=== PATIENT | male | born 1990 | race Caucasian/White ===

== ENCOUNTER 2017-07-07 16:17 | Emergency (ER) | payer BC ==
--- NOTE | 2017-07-07 16:40 | EDM.PDOC ---
ED HPI GENERAL MEDICAL PROBLEM - General Chief Complaint: General Stated Complaint: R RIB PAIN Time Seen by Provider: 07/07/17 16:31 - History of Present Illness INITIAL COMMENTS - FREE TEXT/NARRATIVE: HISTORY AND PHYSICAL: History of present illness: The patient is a 26-year-old male with no stated medical problems who complains of right anterior rib/chest wall pain after he injured it 2 days ago. Patient says that he was working on a pipe that had frozen at home and he was using a wrench and twisted and felt a pop in his right anterior chest wall and then he proceeded to slip and fall and land on the same area. He did not pass out or black out and has no head neck or back pain and only complains of anterior right chest wall pain. It's worse with certain movements and with coughing but he has had no fever chills or cold symptoms no abdominal pain and no posterior rib pain. He has no other complaints of discomfort and he is not taking anything for his pain at home. Review of systems: As per history of present illness and below otherwise all systems reviewed and negative. Past medical history: As per history of present illness and as reviewed below otherwise noncontributory. Surgical history: As per history of present illness and as reviewed below otherwise noncontributory. Social history: No reported history of drug or alcohol abuse. Family history: As per history of present illness and as reviewed below otherwise noncontributory. Physical exam: Gen.: Well-developed well-nourished man who is nontoxic and speaks clearly and easily in the ED. Vital signs reviewed by me HEENT: Atraumatic, normocephalic, negative for conjunctival pallor or scleral icterus, mucous membranes moist, throat clear, neck supple, nontender, trachea midline. Lungs: Clear to auscultation, the patient does exhibit some splinting with deep breaths but has no wheezing stridor or work of breathing, breath sounds equal bilaterally, chest wall with rib tenderness in the anterior mid and lower rib cage without crepitus or defects deformities ecchymosis appreciated. Heart: S1S2, regular rate and rhythm no overt murmurs Abdomen: Soft, nondistended, nontender. NABS Pelvis: Stable nontender. Genitourinary: Deferred. Rectal: Deferred. Extremities: Atraumatic, negative for cords or calf pain. Neurovascular unremarkable. Neuro: Awake, alert, oriented. Cranial nerves II through XII unremarkable. Cerebellum unremarkable. Motor and sensory unremarkable throughout. Exam nonfocal. Diagnostics: Right ribs with chest x-ray Therapeutics: Patient declined any medications for pain in the ER Impression: Right rib/chest wall contusion stable Definitive disposition and diagnosis as appropriate pending reevaluation and review of above. Chest Pain Score (Numeric/FACES): 5 ED ROS GENERAL - Review of Systems Review Of Systems: ROS reveals no pertinent complaints other than HPI. ED EXAM, GENERAL - Physical Exam Exam: See Below (See dictation) Course - Vital Signs Last Recorded V/S: Last Vital Signs Temp 36.6 C 07/07/17 16:30 Pulse 94 07/07/17 16:30 Resp 18 07/07/17 16:30 BP 131/83 07/07/17 16:30 Pulse Ox 97 07/07/17 16:30 - Orders/Labs/Meds Orders: Active Orders 24 hr Category Date Time Status Ribs 2V w Chest Rt [CR] Stat Exams 07/07/17 16:37 Taken Departure - Departure Time of Disposition: 17:32 Disposition: Home, Self-Care 01 Condition: Good Clinical Impression: Contusion of rib on right side Qualifiers: Encounter type: initial encounter Qualified Code(s): S20.211A - Contusion of right front wall of thorax, initial encounter Chest wall contusion Qualifiers: Encounter type: initial encounter Laterality: right Qualified Code(s): S20.211A - Contusion of right front wall of thorax, initial encounter - Discharge Information Referrals: PCP,None [Primary Care Provider] - Forms: ED Department Discharge Additional Instructions: The following information is given to patients seen in the emergency department who are being discharged to home. This information is to outline your options for follow-up care. We provide all patients seen in our emergency department with a follow-up referral. The need for follow-up, as well as the timing and circumstances, are variable depending upon the specifics of your emergency department visit. If you don't have a primary care physician on staff, we will provide you with a referral. We always advise you to contact your personal physician following an emergency department visit to inform them of the circumstance of the visit and for follow-up with them and/or the need for any referrals to a consulting specialist. The emergency department will also refer you to a specialist when appropriate. This referral assures that you have the opportunity for followup care with a specialist. All of these measure are taken in an effort to provide you with optimal care, which includes your followup. Under all circumstances we always encourage you to contact your private physician who remains a resource for coordinating your care. When calling for followup care, please make the office aware that this follow-up is from your recent emergency room visit. If for any reason you are refused follow-up, please contact the [facility] emergency department at and ask to speak to the emergency department charge nurse. [facility] Primary care- [place] [address] Use ice to area for pain and inflammation and use [id number] Motrin or Tylenol for discomfort. His connect with local family doctor for reevaluation further care if the pain persists in the next few days and return to ER as needed and as discussed. - My Orders Last 24 Hours: My Active Orders 07/07/17 16:37 Ribs 2V w Chest Rt [CR] Stat - Assessment/Plan Last 24 Hours: My Active Orders 07/07/17 16:37 Ribs 2V w Chest Rt [CR] Stat
--- NOTE | 2017-07-08 20:38 | CR ---
EXAM DATE: 07/07/17 PATIENT'S AGE: 26 Patient: SLAVA MYRICK Facility: [place], [place] Site . Site : 1990 Study: XRay Chest RIBS W? CHEST [id number] 5:04:28 PM Ordering Physician: Preet Fischer Final Report: INDICATION: Pain after fall. TECHNIQUE: PA chest and four view right ribs. FINDINGS: The lungs are clear. There is no evidence of pulmonary contusion, pneumothorax or pleural effusion. The heart and pulmonary vessels are of normal size. Oblique detail views of the ribs demonstrate no evidence of fracture or intrinsic bone lesion. There is no evidence of pleural hematoma. IMPRESSION: Negative chest and right ribs. Dictated by Jordy Cutris MD @ Jul 07 2017 5:20PM (Electronic Signature) Report Signed by Proxy. MELITA
== END 2017-07-07 17:45 | disposition home or self-care (01) ==
LOC: MW.ED 16:17
DX: S20.211A Contusion of right front wall of thorax, initial encounter (principal); X50.1XXA Overexertion from prolonged static or awkward postures, initial encounter
CPT/HCPCS: 71101-26-RT; 71101-RT; 99283; 99284

== ENCOUNTER 2019-12-15 23:16 | Emergency (ER) | payer BC, OTHER ==
[2019-12-15] MEDS ORDERED: Ibuprofen 800 MG Tab PO ONE (23:44)
--- NOTE | 2019-12-15 23:46 | EDM.PDOC ---
ED HPI GENERAL MEDICAL PROBLEM - General Chief Complaint: Lower Extremity Injury/Pain Stated Complaint: POSSIBLE LEFT LEG INJURY Time Seen by Provider: 12/15/19 23:45 Source of Information: Reports: Patient History Limitations: Reports: No Limitations - History of Present Illness INITIAL COMMENTS - FREE TEXT/NARRATIVE: History of present illness: [Patient is a 29-year-old male who presents with right upper leg pain after playing softball earlier this evening. He states that he dove for a ball and landed hard, he was able to get up and continue playing but shortly after getting home he developed significant pain in his right thigh, specifically quadricep area. He feels like he tore something in that muscle. Pain is exacerbated with weightbearing and palpation of the area. He did not take any pain medicine at home. Denies any head trauma or loss of consciousness.] Review of systems: As per history of present illness and below otherwise all systems reviewed and negative. Past medical history: As per history of present illness and as reviewed below otherwise noncontributory. Surgical history: As per history of present illness and as reviewed below otherwise noncontributory. Social history: No reported history of drug or alcohol abuse. Family history: As per history of present illness and as reviewed below otherwise noncontributory. Physical exam: General: Awake, alert, no acute distress, A&O X3. HEENT: Atraumatic, normocephalic, pupils reactive, negative for conjunctival pallor or scleral icterus, mucous membranes moist, throat clear, neck supple, nontender, trachea midline. Lungs: Clear to auscultation, breath sounds equal bilaterally, chest nontender. Heart: RRR, normal S1S2, no JVD. Abdomen: Soft, nondistended, nontender. Negative for masses or hepatosplenomegaly. Negative for costovertebral tenderness. Pelvis: Stable nontender. Genitourinary: Deferred. Rectal: Deferred. Extremities: Atraumatic, no edema, Neurovascular unremarkable. Neuro: Motor and sensory grossly intact throughout. Exam nonfocal. Diagnostics: [] Therapeutics: [] Impression: [] Plan: [] Definitive disposition and diagnosis as appropriate pending reevaluation and review of above. r thigh Pain Score (Numeric/FACES): 7 - Related Data Allergies Allergy/AdvReac Type Severity Reaction Status Date / Time cat Allergy Other Uncoded 12/15/19 23:36 Home Meds: Home Meds . [No Known Home Meds] 07/07/17 [History] Past Medical History - Past Surgical History GI Surgical History: Reports: Appendectomy Social & Family History - Caffeine Use Caffeine Use: Reports: Coffee Review of Systems - Review of Systems Review Of Systems: Comprehensive ROS is negative, except as noted in HPI. ED EXAM, GENERAL - Physical Exam Exam: See Below (see h and p) ED TRAUMA EXTREMITY PROCEDURES - Additional/Other Procedure(s) Other (Free Text) Procedure(s): PAPO wrap applied to right thigh by me. Patient tolerated procedure well. NV intact before and after. -Nestor Silverman MD Course - Vital Signs Text/Narrative:: X-ray negative. Patient feels some improvement after getting oral ibuprofen. Papo bandage applied. Encouraged follow-up in the outpatient setting with PCP. Return precautions also provided. Patient is agreeable and comfortable this plan and stable and well-appearing at discharge. Last Recorded V/S: Last Vital Signs Temp 36.2 C 12/15/19 23:23 Pulse 89 12/15/19 23:23 Resp 17 12/15/19 23:23 BP 118/79 12/15/19 23:23 Pulse Ox 97 12/15/19 23:23 - Orders/Labs/Meds Meds: Medications Discontinued Medications Generic Name Dose Route Start Last Admin Trade Name Amie PRN Reason Stop Dose Admin Ibuprofen 800 mg 12/15/19 23:44 12/16/19 00:20 Motrin PO 12/15/19 23:45 800 mg ONETIME ONE Administration Departure - Departure Time of Disposition: 00:34 Disposition: Home, Self-Care 01 Condition: Good Clinical Impression: Quadriceps muscle strain - Discharge Information Instructions: Quadriceps Strain Referrals: PCP,None [Primary Care Provider] - Forms: ED Department Discharge Additional Instructions: The following information is given to patients seen in the emergency department who are being discharged to home. This information is to outline your options for follow-up care. We provide all patients seen in our emergency department with a follow-up referral. The need for follow-up, as well as the timing and circumstances, are variable depending upon the specifics of your emergency department visit. If you don't have a primary care physician on staff, we will provide you with a referral. We always advise you to contact your personal physician following an emergency department visit to inform them of the circumstance of the visit and for follow-up with them and/or the need for any referrals to a consulting specialist. The emergency department will also refer you to a specialist when appropriate. This referral assures that you have the opportunity for follow-up care with a specialist. All of these measure are taken in an effort to provide you with optimal care, which includes your follow-up. Under all circumstances we always encourage you to contact your private physician who remains a resource for coordinating your care. When calling for follow-up care, please make the office aware that this follow-up is from your recent emergency room visit. If for any reason you are refused follow-up, please contact the [facility] Emergency Department at and asked to speak to the emergency department charge nurse. Lidia Best [facility] - Internal Medicine [address] [place] [id number] Sepsis Event Note (ED) - Evaluation Sepsis Screening Result: No Definite Risk - Focused Exam Vital Signs: Vital Signs Temp Pulse Resp BP Pulse Ox 12/15/19 23:23 36.2 C 89 17 118/79 97
--- NOTE | 2019-12-16 00:31 | CR ---
Indication: Fall. Pain Technique: Five views of the right femur Comparison: None available Findings: Bones: Alignment is normal. No fractures or bone lesions. Joint spaces: Preserved. Increased attenuation in Hoffa`s fat pad could represent focal edema. Soft tissues: Unremarkable. Impression: No acute fracture or dislocation. Dictated by Frankie Breen MD @ 12/16/2019 12:29:16 AM Dictated by: Frankie Breen MD @ 12/16/2019 00:29:55 (Electronically Signed)
== END 2019-12-16 01:20 | disposition home or self-care (01) ==
LOC: MW.ED 23:16
DX: S76.111A Strain of right quadriceps muscle, fascia and tendon, initial encounter (principal); Z91.048 Other nonmedicinal substance allergy status; X50.9XXA Other and unspecified overexertion or strenuous movements or postures, initial encounter; Y93.64 Activity, baseball
CPT/HCPCS: 73552; 99283; A9270

== ENCOUNTER 2020-12-20 14:46 | Emergency (ER) | payer OTHER ==
[2020-12-20] MEDS ORDERED: Diphtheria,Pertussis(Acell),Tetanus Vaccine 0.5 ML Syringe IM ONE (15:06)
[2020-12-20] MEDS ORDERED: Ketorolac 15 MG/ML SDV IM ONE (15:06)
[2020-12-20] MEDS ORDERED: Lidocaine 1% with EPINEPHrine 1:100,000 10 ML MDV INJECT ONE (16:12)
[2020-12-20] MEDS ORDERED: Lidocaine 1% 10 ML MDV INJECT ONE (16:13)
--- NOTE | 2020-12-20 16:24 | CR ---
Indication: Hand laceration Technique: Three views left hand Comparison: None Findings: Bones: Alignment is normal. No fractures or bone lesions. Joint spaces: Unremarkable. Soft tissues: Unremarkable. Impression: Negative. Dictated by Ángela Ruiz MD @ 12/20/2020 4:23:[address] Ángela Ruiz @ Dec 20 2020 4:23PM
[2020-12-20] MEDS ORDERED: Lidocaine 1% with EPINEPHrine 1:100,000 20 ML MDV ONE (16:28)
[2020-12-20] MEDS ORDERED: Cephalexin 500 MG Cap PO ONE (17:40)
[2020-12-20] MEDS ORDERED: Bacitracin Oint 1 GM U/D Packet TOP ONE (17:41)
--- NOTE | 2020-12-20 17:48 | EDM.PDOC ---
ED HPI GENERAL MEDICAL PROBLEM - General Chief Complaint: Laceration Stated Complaint: CUT L HAND AT WORK Time Seen by Provider: 12/20/20 14:58 - History of Present Illness INITIAL COMMENTS - FREE TEXT/NARRATIVE: CHIEF COMPLAINT(S): Left hand knife wound HISTORY OF PRESENT ILLNESS: This is a 30-year-old man and without any significant past medical history who comes to the emergency department with a chief complaint of knife wound to his left hand. The patient states that he was at work and the pocket knife slipped and cut the palm of his left hand. He states that he does have some tingling to his left pinky and some mild bleeding. He states that his tetanus is not up-to-date. He states that his pain is currently 6 out of 10 which he describes as aching without any radiation. He states that he can move all of his fingers on his left hand. He denies any other injury with a knife. He denies any chest pain, shortness of breath, abdominal pain. REVIEW OF SYSTEMS: Constitutional: Denies fever, chills. Eyes: Denies eye pain Ears, Nose, Mouth, & Throat: Denies earache Cardiovascular: Denies chest pain Respiratory: Denies shortness of breath Gastrointestinal: Denies Nausea, vomiting, diarrhea, hematochezia. Genitourinary: Denies hematuria Skin: Positive for left hand wound MSK: Denies joint pain Neurological: Positive for left pinky tingling denies blurred vision Psychiatric: Denies depression PAST MEDICAL HISTORY: As per history of present illness and as reviewed below otherwise noncontributory. SURGICAL HISTORY: As per history of present illness and as reviewed below otherwise noncontributory. SOCIAL HISTORY: As per history of present illness and as reviewed below otherwise noncontributory. FAMILY HISTORY: As per history of present illness and as reviewed below otherwise noncontributory. EXAMINATION OF ORGAN SYSTEMS/BODY AREAS: Constitutional: Blood pressure is 136/82, heart rate 88, respiratory 20 with an oxygen saturation 97% on room air. Temperature 36.2 General: Overall well-appearing man who is in no acute distress Psychiatric: Appropriate mood and affect. Eyes: No scleral icterus or conjunctival erythema ENMT: Moist mucous membranes. No pharyngeal erythema Cardiovascular: Regular, rate, and rhythm. No gallops, murmurs, or rubs. Bilateral upper extremity pulses symmetric and intact. Respiratory: Lungs clear to auscultation bilaterally. No wheezes, rales, or rhonchi. Gastrointestinal: Soft, non-tender, non-distended. Normoactive bowel sounds Genitourinary: No suprapubic tenderness Musculoskeletal: The patient has full range of motion of all of his fingers on his left hand including flexion and extension. The patient can abduct and abduct all his fingers. Full range of motion at the left wrist. Skin: There is a 9 cm laceration to the patient's medial hand which starts on the palmar aspect extends laterally onto the dorsal aspect. There is muscle exposed but there is no tendon exposed. There is some oozing of blood. Neurological: Alert, GCS 15 distal sensation is intact. MEDICAL DECISION MAKING AND COURSE IN THE ED WITH INTERPRETATION/REVIEW OF DIAGNOSTIC STUDIES: This is a 30-year-old and without any significant past medical history who comes to the emergency department with large laceration to his left medial hand who is neurovascularly intact with some tingling in his left pinky finger with some mild oozing of blood. At this time we did place a compression dressing. Will obtain a left hand x-ray to evaluate for any foreign bodies or fracture. Given there is no tendon exposed and the patient is neurovascularly intact I do believe we can suture repair the patient here. We will provide the patient with Toradol for pain relief and update the patient's tetanus status. The patient will require prophylaxis for antibiotics given that the wound is mildly deep and large. We will start the patient on Keflex. The radiological images were viewed by myself along with reading the report from the radiologist. Left hand x-ray does not reveal any acute abnormality. On reevaluation, the patient's compression dressing was removed and the wound was irrigated well by RN. After irrigation the patient's wound continued to ooze. There appeared to be some arterial bleeding therefore we did place Surgicel and applied compression. Given the oozing of the blood I did contact hand surgery at [facility] in [place] and spoke with Dr. Leal. Patient does have the tingling in his left pinky finger however he has full range of motion. This was discussed with hand surgery. Given the patient has good capillary refill distally has full function of his fingers he stated that stitches could be placed to control the bleeding and primary closure with stitches as appropriate. On reevaluation after compression the patient's bleeding had significantly decreased. There was no active arterial bleeding at this time. Laceration Repair Note Repair of the 9 cm left hand wound was done by myself. Wound was irrigated well with saline. Local anesthesia with lidocaine was performed. No foreign bodies were noted. The wound was repaired with 13 4-0 directed nylon sutures and one deep 4-0 chronic gut suture was used to approximate the wound. . Wound edges approximated well. Bacitracin ointment and a sterile dressing were applied.. I did discuss strict return precautions with the patient regarding this laceration. Hand surgery contact information was provided to the patient. He is to return within 10 to 14 days for stitch removal. He was amenable discharge and had no further questions DISPOSITION: The patient was discharged home in stable condition. The patient will follow up with primary care physician or emergency department for stitch removal CONDITION: Fair PROCEDURES: Left hand laceration repair FINAL IMPRESSION(S)/DIAGNOSES: 1. Acute left hand laceration status post suture repair Roger Davis M.D. left hand Pain Score (Numeric/FACES): 6 - Related Data Allergies Allergy/AdvReac Type Severity Reaction Status Date / Time cat Allergy Other Uncoded 12/20/20 14:58 Home Meds: Home Meds cephALEXin [Keflex] 500 mg PO BID #10 cap 12/20/20 [Rx] Past Medical History - Past Health History Medical/Surgical History: Denies Medical/Surgical History HEENT History: Reports: None Cardiovascular History: Reports: None Respiratory History: Reports: None Gastrointestinal History: Reports: None Genitourinary History: Reports: None Musculoskeletal History: Reports: None Neurological History: Reports: None Psychiatric History: Reports: None Endocrine/Metabolic History: Reports: None Hematologic History: Reports: None Immunologic History: Reports: None Oncologic (Cancer) History: Reports: None Dermatologic History: Reports: None - Infectious Disease History Infectious Disease History: Reports: None - Past Surgical History Head Surgeries/Procedures: Reports: None GI Surgical History: Reports: Appendectomy Social & Family History - Family History Family Medical History: No Pertinent Family History - Tobacco Use Tobacco Use Status *Q: Current Every Day Tobacco User Years of Tobacco use: 12 Packs/Tins Daily: 1 - Caffeine Use Caffeine Use: Reports: None - Recreational Drug Use Recreational Drug Use: No ED ROS GENERAL - Review of Systems Review Of Systems: See Below ED EXAM, SKIN/RASH Exam: See Below Course - Vital Signs Last Recorded V/S: Last Vital Signs Temp 36.6 C 12/20/20 18:20 Pulse 71 12/20/20 18:20 Resp 18 12/20/20 18:20 BP 137/77 12/20/20 18:20 Pulse Ox 98 12/20/20 18:20 - Orders/Labs/Meds Meds: Medications Discontinued Medications Generic Name Dose Route Start Last Admin Trade Name Amie PRN Reason Stop Dose Admin Bacitracin 1 dose 12/20/20 17:41 12/20/20 18:07 Bacitracin Oint 1 Gm U/D Packet TOP 12/20/20 17:42 1 dose ONETIME ONE Administration Cephalexin 500 mg 12/20/20 17:40 12/20/20 18:06 Cephalexin 500 Mg Cap PO 12/20/20 17:41 500 mg ONETIME ONE Administration Diphtheria/Tetanus/Acell Pertussis 0.5 ml 12/20/20 15:06 12/20/20 15:23 Diphtheria,Pertussis(Acell),Tetanus Vaccine 0.5 Ml Syringe IM 12/20/20 15:07 0.5 ml .ONCE ONE Administration Ketorolac Tromethamine 15 mg 12/20/20 15:06 12/20/20 15:23 Ketorolac 15 Mg/Ml Sdv IM 12/20/20 15:07 15 mg ONETIME ONE Administration Lidocaine HCl 20 ml 12/20/20 16:13 12/20/20 16:34 Lidocaine 1% 10 Ml Mdv INJECT 12/20/20 16:14 Not Given ONETIME ONE Lidocaine HCl Confirm 12/20/20 16:28 12/20/20 16:33 Lidocaine 1% 5 Ml Sdv Administered 12/20/20 16:29 10 ml Dose Administration 10 ml .ROUTE .STK-MED ONE Lidocaine/Epinephrine 10 ml 12/20/20 16:12 12/20/20 16:35 Lidocaine 1% With Epinephrine 1:100,000 10 Ml Mdv INJECT 12/20/20 16:13 Not Given ONETIME ONE Lidocaine/Epinephrine Confirm 12/20/20 16:28 12/20/20 16:34 Lidocaine 1% With Epinephrine 1:100,000 20 Ml Mdv Administered 12/20/20 16:29 20 ml Dose Administration 20 ml .ROUTE .STK-MED ONE Departure - Departure Time of Disposition: 17:47 Disposition: Home, Self-Care 01 Condition: Fair Clinical Impression: Laceration - Discharge Information *PRESCRIPTION DRUG MONITORING PROGRAM REVIEWED*: No *COPY OF PRESCRIPTION DRUG MONITORING REPORT IN PATIENT ANOOP: No Prescriptions: cephALEXin [Keflex] 500 mg PO BID #10 cap Instructions: Laceration Care, Adult, Sutures, [facility], or Adhesive Wound Closure, [id number] Referrals: PCP,None [Primary Care Provider] - Forms: ED Department Discharge Additional Instructions: You were evaluated today on an emergent basis. At this time you did have a significant cut to your left hand. At the time of our evaluation we did have good blood flow to your pinky finger and there was some bleeding which did appear to stop. We did place 13 stitches and I do recommend removal in 10 to 14 days either here at the emergency department or your primary care physician. I do recommend use Keflex twice a day for the next 5 days as prophylaxis for possible infection. If you have any redness, pus drainage, continued bleeding I would return to the emergency department. In addition if your pinky finger or any other finger turns cold, white and you feel like there is no blood flow to it please return to the emergency department. Hand Surgery ([place]) [phone] [facility] [address] [place] [address] [place] [address] The patient is informed of any results of their evaluation and diagnostic workup and all questions are answered. They are given discharge instructions and return precautions. The patient is stable for discharge. The patient states they understand and agree with the plan and that they will return if their symptoms get worse or if they have any new concerns. The following information is given to patients seen in the emergency department who are being discharged to home. This information is to outline your options for follow-up care. We provide all patients seen in our emergency department with a follow-up referral. The need for follow-up, as well as the timing and circumstances, are variable depending upon the specifics of your emergency department visit. If you don't have a primary care physician on staff, we will provide you with a referral. We always advise you to contact your personal physician following an emergency department visit to inform them of the circumstance of the visit and for follow-up with them and/or the need for any referrals to a consulting specialist. The emergency department will also refer you to a specialist when appropriate. This referral assures that you have the opportunity for follow-up care with a specialist. All of these measure are taken in an effort to provide you with optimal care, which includes your follow-up. Under all circumstances we always encourage you to contact your private physician who remains a resource for coordinating your care. When calling for follow-up care, please make the office aware that this follow-up is from your recent emergency room visit. If for any reason you are refused follow-up, please contact the [facility] Emergency Department at and asked to speak to the emergency department charge nurse. Sepsis Event Note (ED) - Evaluation Sepsis Screening Result: No Definite Risk - Focused Exam Vital Signs: Vital Signs Temp Pulse Resp BP Pulse Ox 12/20/20 18:20 36.6 C 71 18 137/77 98 12/20/20 16:51 36.8 C 82 18 130/78 98 12/20/20 14:55 36.2 C 88 20 136/82 97
== END 2020-12-20 18:20 | disposition home or self-care (01) ==
LOC: MW.ED 14:46
DX: S61.412A Laceration without foreign body of left hand, initial encounter (principal); Z23 Encounter for immunization; Z91.09 Other allergy status, other than to drugs and biological substances; W26.0XXA Contact with knife, initial encounter; Y99.0 Civilian activity done for income or pay
CPT/HCPCS: 12004; 73130; 90471; 90715; 96372; 99283; A9270; J1885